=== PATIENT | male | born 1985 | race Caucasian/White ===

== ENCOUNTER 2017-04-18 08:12 | Emergency (ER) | payer MEDICARE | END 2017-04-18 13:25 | disposition home or self-care (01) | LOC: ER1 08:12 | DX: M79.662 Pain in left lower leg (principal); M25.572 Pain in left ankle and joints of left foot; M79.672 Pain in left foot; R22.42 Localized swelling, mass and lump, left lower limb | CPT/HCPCS: 36415; 73564; 73610; 73630; 85379; 93971; 99284 ==